=== PATIENT | female | born 1995 | race Caucasian/White ===

== ENCOUNTER 2022-03-14 13:00 | Outpatient (NON) | payer OTHER, SELFPAY | END 2022-03-14 13:01 | disposition home or self-care (01) | LOC: ANHLAB 03-15 10:21 | PROVIDERS: Visit Provider Nurse Practitioner | DX: D49.2 Neoplasm of unspecified behavior of bone, soft tissue, and skin (principal) | CPT/HCPCS: 88305; 88342 ==